=== PATIENT | male | born 2000 | race Caucasian/White ===

== ENCOUNTER 2024-11-29 02:36 | Emergency (ER) | payer OTHER ==
[~2024-11-29] VITALS: Ht 195.6 cm; Wt 100.0 kg
[2024-11-29 02:40] VITALS: TEMP 98.3
[2024-11-29 03:56] LABS: BASO # 0.1 10^3/uL (0.0-0.2); BASO % 0.3 % (0.0-1.0); EOS # 0.4 10^3/uL (0.0-0.5); EOS % 2.4 % (0.0-3.0); HEMATOCRIT 54.8 % (42.0-52.0); HEMOGLOBIN 18.5 g/dl (13.5-17.5); LYMPH # 1.2 10^3/uL (1.5-5.0); LYMPH % 8.2 % (24.0-44.0); MEAN CORPUSCULAR HEMOGLOBIN 29.3 pg (27.0-33.0); MEAN CORPUSCULAR HGB CONC 33.8 g/dl (32.0-36.5); MEAN CORPUSCULAR VOLUME 86.8 fl (80.0-96.0); MONO # 1.5 10^3/uL (0.0-0.8); MONO % 10.7 % (2.0-8.0); NEUTROPHILS # 11.3 10^3/uL (1.5-8.5); PLATELET COUNT, AUTOMATED 194 10^3/uL (150-450); RED BLOOD COUNT 6.31 10^6/uL (4.30-6.10); WHITE BLOOD COUNT 14.4 10^3/uL (4.0-10.0)
[2024-11-29 04:17] LABS: LIPASE 34 U/L (12-53)
[2024-11-29 04:19] LABS: ALBUMIN 4.6 G/DL (3.2-5.2); ALKALINE PHOSPHATASE 77 U/L (40-129); ALT/SGPT 51 U/L (7.0-40); AST/SGOT 50 U/L (<34); BILIRUBIN,DIRECT 0.2 MG/DL (<0.4); BILIRUBIN,TOTAL 0.7 MG/DL (0.3-1.2); BLOOD UREA NITROGEN 26 MG/DL (9-23); CALCIUM LEVEL 9.9 MG/DL (8.5-10.1); CARBON DIOXIDE LEVEL 22 MMOL/L (20-31); CHLORIDE LEVEL 109 MMOL/L (98-107); CREATININE FOR GFR 1.51 MG/DL (0.70-1.30); GLOMERULAR FILTRATION RATE > 60.0 (>60); GLUCOSE, FASTING 117 MG/DL (60-100); POTASSIUM SERUM 4.2 MMOL/L (3.5-5.1); SODIUM LEVEL 144 MMOL/L (136-145); TOTAL PROTEIN 8.3 G/DL (5.7-8.2)
[2024-11-29] MEDS: ONDANSETRON 4MG 2ML VIAL IV ONE (04:22)
[2024-11-29] MEDS: NS (Normal Saline) 0.9% 1,000 ML IV ONE (04:22)
[2024-11-29] MEDS ORDERED: ISOVUE-370 76% 100ML VIAL As Ordered ONE (04:51)
[2024-11-29] MEDS: METOCLOPRAMIDE INJ 10MG/2ML VIAL IV ONE (05:10)
[2024-11-29] MEDS ORDERED: diphenhydrAMINE 50MG/ML VIAL As Ordered ONE (05:26)
[2024-11-29] MEDS: diphenhydrAMINE 50MG/ML VIAL IV STA (05:28)
[2024-11-29 06:00] VITALS: BP 132/78
[2024-11-29] MEDS ORDERED: ONDA-282 PO (06:24)
[2024-11-29 06:36] VITALS: O2SAT 98
== END 2024-11-29 06:52 | disposition home or self-care (01) ==
LOC: M ED 02:36
DX: K52.9 Noninfective gastroenteritis and colitis, unspecified (principal)
CPT/HCPCS: 74177; 80048; 80076; 83690; 85025; 87486; 87581; 87633; 87798; 96361; 96374; 96375; 99284; J1200; J2405; J2765; Q9967